=== PATIENT | female | born 1935 | race Caucasian/White ===

== ENCOUNTER 2016-10-05 12:27 | Inpatient (IN) | payer MEDICARE, MEDICAID ==
[2016-10-05] VITALS (8 sets, daily range): BP systolic 129–147; BP diastolic 77–88
[~2016-10-05] VITALS: Ht 167.6 cm; Wt 72.6 kg
[~2016-10-05 12:27] MED LIST: AMBIEN10 MG PO; ATIVAN1 MG ORAL; BACTRIM DS TAB1 EAC1 ORAL; DRISDOL50000 UNIT ORAL; LOMOTIL TABLET1 EACH ORAL; NORCO 10-325 T1 EACH PO; NORCO 5-325 TA1 EACH ORAL; POTASSIUM; PROCHLORPERAZINE5 MG PO; PROZAC20 MG PO; VITAMIN B-12500 MCG ORAL; XANAX0.25 MG ORAL; [UNRECOGNIZED DRUG - REMARK] ORAL
--- NOTE | 2016-10-05 13:52 | Emergency Room Report ---
History of Present Illness General Chief Complaint: Lower Back Pain or Injury Source: Patient Present Illness HPI Patient is she presents with complaints of fall pain to the lower back and left hip area However after discussion with the patient she was found to be somewhat somnolent appears groggy Cannot give me a clear history of how she fell there is consideration for possible syncopal episode Patient is on pain medication as well Possible unintentional over ingestion Patient does point to her left hip with the main area of pain Denies any loss of consciousness however the patient's history is somewhat limited with her ability to provide medical history Allergies: Coded Allergies: INFLUENZA VIRUS VACCINES (Verified Allergy, Unknown, "RASH, ALMOST " PER PATIENT ON MED REC, 05/02/11) PROPOXYPHENE HCL (Verified Adverse Reaction, Severe, NAUSEA, VOMITING, ) Patient History Limited by: medical condition Past Medical History: see triage record Pertinent Family History: unable to obtain Reviewed Nursing Documentation: PMH: Agreed, PSxH: Agreed Nursing Documentation-PMH Hx Cancer: No Hx Gastrointestinal Problems: Yes - Abdominal pain Review of Systems All Other Systems: limited - Other than the ones mentioned in the history of present illness all others are reviewed however they do stay limited due to the patient's mental status Physical Exam Vital Signs Date Time Temp Pulse Resp B/P Pulse Ox O2 Delivery O2 Flow Rate FiO2 10/05/16 12:28 99.0 82 16 130/80 98 Room Air Sp02 EP Interpretation: reviewed, normal General Appearance: no apparent distress Head: normocephalic, atraumatic Eyes: bilateral eye EOMI, bilateral eye PERRL ENT: normal pharynx, dry mucus membranes Neck: supple Respiratory: lungs clear, normal breath sounds Cardiovascular #1: regular rate, rhythm, no edema Gastrointestinal: non tender, soft, no mass Musculoskeletal: other - Patient does not have any obvious focality however 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 pain on palpation of the left hip area, Neurologic: other - Patient follows simple commands however appears to be confused no obvious focality, Skin: normal color, no rash Lymphatic: no adenopathy Medical Decision Making Diagnostic Impression: Primary Impression: Syncope Additional Impressions: Back pain UTI (urinary tract infection) ER Course Multiple differentials considered initially the patient's main complaint was regarding fall However the patient's behavior appears somewhat abnormal patient appears slow to respond mildly confused Septic workup was initiated patient does have obvious signs of UTI Baseline blood work appropriate CT imaging did not reveal any obvious acute fracture At this time patient was admitted for further inpatient care Labs Test 10/05/16 14:00 10/05/16 14:20 10/05/16 20:00 10/06/16 04:30 White Blood Count 7.3 K/UL (4.8-10.8) 7.4 K/UL (4.8-10.8) Red Blood Count 4.66 M/UL (4.20-5.40) 4.57 M/UL (4.20-5.40) Hemoglobin 13.6 G/DL (12.0-16.0) 13.6 G/DL (12.0-16.0) Hematocrit 42.4 % (37.0-47.0) 41.4 % (37.0-47.0) Mean Corpuscular Volume 91 FL (80-99) 90 FL (80-99) Mean Corpuscular Hemoglobin 29.1 PG (27.0-31.0) 29.6 PG (27.0-31.0) Mean Corpuscular Hemoglobin Concent 32.0 G/DL (32.0-36.0) 32.8 G/DL (32.0-36.0) Red Cell Distribution Width 12.4 % (11.6-14.8) 12.5 % (11.6-14.8) Platelet Count 252 K/UL (150-450) 248 K/UL (150-450) Mean Platelet Volume 6.3 FL (6.5-10.1) 5.8 FL (6.5-10.1) Neutrophils (%) (Auto) 45.0 % (45.0-75.0) 34.2 % (45.0-75.0) Lymphocytes (%) (Auto) 44.1 % (20.0-45.0) 54.6 % (20.0-45.0) Monocytes (%) (Auto) 8.6 % (1.0-10.0) 8.4 % (1.0-10.0) Eosinophils (%) (Auto) 0.8 % (0.0-3.0) 1.4 % (0.0-3.0) Basophils (%) (Auto) 1.5 % (0.0-2.0) 1.3 % (0.0-2.0) Prothrombin Time 10.2 SEC (9.30-11.50) Prothromb Time International Ratio 1.0 (0.9-1.1) Activated Partial Thromboplast Time 25 SEC (23-33) Sodium Level 137 mEQ/L (135-145) 141 mEQ/L (135-145) Potassium Level 4.3 mEQ/L (3.4-4.9) 3.4 mEQ/L (3.4-4.9) Chloride Level 95 mEQ/L (98-107) 97 mEQ/L (98-107) Carbon Dioxide Level 26 mEQ/L (20-30) 28 mEQ/L (20-30) Anion Gap 16 (5-15) 16 (5-15) Blood Urea Nitrogen 11 mg/dL (7-23) 11 mg/dL (7-23) Creatinine 0.9 mg/dL (0.5-0.9) 0.9 mg/dL (0.5-0.9) Estimat Glomerular Filtration Rate mL/min (>60) mL/min (>60) Glucose Level 104 mg/dL (74-106) 106 mg/dL (74-106) Calcium Level 9.2 mg/dL (8.6-10.2) 9.2 mg/dL (8.6-10.2) Total Bilirubin 0.5 mg/dL (0.0-1.2) Aspartate Amino Transf (AST/SGOT) 18 U/L (5-40) Alanine Aminotransferase (ALT/SGPT) 8 U/L (3-33) Alkaline Phosphatase 89 U/L (35-104) Total Creatine Kinase 89 U/L (26-140) Creatine Kinase MB 2.0 ng/mL (< 3.8) Creatine Kinase MB Relative Index 2.2 Troponin I < 0.30 ng/mL (<=0.30) < 0.30 ng/mL (<=0.30) Pro-B-Type Natriuretic Peptide 91 pg/mL (0-450) Total Protein 7.4 g/dL (6.6-8.7) Albumin 4.2 g/dL (3.5-5.2) Globulin 3.2 g/dL Albumin/Globulin Ratio 1.3 (1.0-2.7) Lipase 15 U/L (< 60) Urine Color Yellow Urine Appearance Clear Urine pH 6 (4.5-8.0) Urine Specific [place] 1.015 (1.005-1.035) Urine Protein 2+ (NEGATIVE) Urine Glucose (UA) Negative (NEGATIVE) Urine Ketones Negative (NEGATIVE) Urine Occult Blood 3+ (NEGATIVE) Urine Nitrite Positive (NEGATIVE) Urine Bilirubin Negative (NEGATIVE) Urine Urobilinogen Normal MG/DL (0.0-1.0) Urine Leukocyte Esterase 3+ (NEGATIVE) Urine RBC 5-10 /HPF (0 - 2) Urine WBC 15-20 /HPF (0 - 2) Urine Squamous Epithelial Cells Few /LPF (NONE/OCC) Urine Amorphous Sediment Few /LPF (NONE) Urine Bacteria Many /HPF (NONE) Urine Opiates Screen Positive (NEGATIVE) Urine Barbiturates Screen Negative (NEGATIVE) Phencyclidine (PCP) Screen Negative (NEGATIVE) Urine Amphetamines Screen Negative (NEGATIVE) Urine Benzodiazepines Screen Positive (NEGATIVE) Urine Cocaine Screen Negative (NEGATIVE) Urine Marijuana (THC) Screen Negative (NEGATIVE) Vitamin B12 Level 606 pg/mL (211-946) Thyroid Stimulating Hormone (TSH) 1.030 uIU/mL (0.300-4.500) Test 10/06/16 20:28 Troponin I < 0.30 ng/mL (<=0.30) Rhythm Strip Diag. Results EP Interpretation: yes Rate: 78 Rhythm: NSR, no PVC's, no ectopy Chest X-Ray Diagnostic Results EP Interpretation: Yes Findings: no consolidation, no effusion, no pneumothorax Number of Views: 1 Other X-Ray Diagnostic Results Other X-Ray Diagnostic Results : EP Interpretation: Yes Findings: no fractures, no dislocation, no soft tissue swelling Number of Views: 4 - c-spine CT/MRI/US Diagnostic Results CT/MRI/US Diagnostic Results : Impression CT head:no acute disease CT-L spineImpression: No definite acute bony trauma Stable compression fracture deformities of L2 and L4, with evidence of interim kyphoplasty Stable chronic fracture impression deformity of the L3 vertebral body. Degenerative changes as areas of spinal stenosis, as delineated on a level by level basis above. Last Vital Signs Date Time Temp Pulse Resp B/P Pulse Ox O2 Delivery O2 Flow Rate FiO2 10/05/16 13:40 74 16 132/79 99 Room Air 10/05/16 12:39 99.0 Status: improved Disposition: ADMITTED INPATIENT Condition: Serious BECK HERNANDEZ D.O. Oct 05, 2016 13:52
--- NOTE | 2016-10-05 14:15 | Diagnostic Imaging Report ---
Indication: PAIN, status post fall Technique: spiral acquisitions obtained through the brain. Angled axial and coronal 5 x 5 mm slices were reconstructed. No IV contrast utilized. Radiation dose was minimized using automated exposure control Total dose length product 1442 mGycm. CTDIvol(s) 70 mGy Comparison: 04/21/2016 FINDINGS: No acute hemorrhage or edema. No mass effect or midline shift. There is age-related enlargement of the ventricles and extra axial CSF spaces. There is periventricular deep white matter ischemic change. Normal frank-white differentiation. Visualized orbits are unremarkable. Visualized sinuses are unremarkable. Intact calvarium. Findings are unchanged IMPRESSION: Chronic and age-related changes. Negative for acute intracranial bleed or mass effect The CT scanner at [facility] is accredited by the [employer] and the scans are performed using protocols designed to limit radiation exposure to as low as reasonably achievable to attain images of sufficient resolution adequate for diagnostic evaluation
[2016-10-05 14:25] LABS: BASOPHILS % (AUTO) 1.5 % (0.0-2.0); EOSINOPHILS % (AUTO) 0.8 % (0.0-3.0); LYMPHOCYTES % (AUTO) 44.1 % (20.0-45.0); MEAN CORPUSCULAR HEMOGLOBIN 29.1 PG (27.0-31.0); MEAN CORPUSCULAR VOLUME 91 FL (80-99); MEAN PLATELET VOLUME 6.3 FL (6.5-10.1); MONOCYTES % (AUTO) 8.6 % (1.0-10.0); PLATELET COUNT 252 K/UL (150-450); RED BLOOD COUNT 4.66 M/UL (4.20-5.40); RED CELL DISTRIBUTION WIDTH 12.4 % (11.6-14.8); WHITE BLOOD COUNT 7.3 K/UL (4.8-10.8)
--- NOTE | 2016-10-05 14:29 | Diagnostic Imaging Report ---
Indications: Pain/fall Technique: Spiral acquisitions obtained through the lumbar spine. Multiplanar reconstructions were generated. No IV contrast utilized. Total dose length product 485 mGycm. CTDIvol(s) 17 mGy Comparison: 04/21/2016 Findings: There is a burst/compression fracture deformity of the L2 vertebral body. There is been interim vertebral augmentation procedure for this. The fracture deformity appears unchanged from the prior study. The cement is entirely intraosseous. There is slight posterior retropulsion, also previously described, which does not significantly compromise the spinal canal. There is a minimal anterior wedge compression fracture at superior endplate deformity of the L4 vertebral body, fracture likewise appearing unchanged. There is evidence of interim vertebral indication procedure, with intraosseous cement within the vertebral body. Cement is entirely intraosseous. There is slight anterior loss of height of the L3 vertebral body, with some underlying bony sclerosis. This appears unchanged from the previous exam. L1, L5, and lower thoracic vertebral bodies demonstrate normal height. No acute fracture is evident. No dislocations. As mentioned above, there is slight posterior retropulsion of the superior posterior wall of the L2 vertebral, which does not result in any significant narrowing of spinal canal. No significant neuroforaminal stenosis at this level. At L2-3 and L3-4, there is circumferential annular bulge ligamentum flavum hypertrophy, which results in mild narrowing of the spinal canal. No significant neural foraminal stenosis At L4-5, circumferential annular bulge, posterior osteophytes, and ligamentum flavum hypertrophy results in mild to moderate narrowing of the spinal canal. No significant neural foraminal stenosis. There is facet degeneration bilaterally at this level At L5-S1, there is moderate to severe degenerative disc narrowing. No significant disc bulge or protrusion, spinal stenosis, or neural foraminal narrowing. There is facet degeneration bilaterally The surrounding extra spinal soft tissues are unremarkable. Impression: No definite acute bony trauma Stable compression fracture deformities of L2 and L4, with evidence of interim kyphoplasty Stable chronic fracture impression deformity of the L3 vertebral body. Degenerative changes as areas of spinal stenosis, as delineated on a level by level basis above. The CT scanner at [facility] is accredited by the [employer] and the scans are performed using protocols designed to limit radiation exposure to as low as reasonably achievable to attain images of sufficient resolution adequate for diagnostic evaluation.
[2016-10-05] MEDS ORDERED: cefTRIAXone 1 GM in NS 55 ML IVPB ONE (14:30)
[2016-10-05 14:35] LABS: PROTHROMBIN TIME 10.2 SEC (9.30-11.50)
--- NOTE | 2016-10-05 14:37 | Diagnostic Imaging Report ---
Indication: PAIN Technique: 3 views of the cervical spine Comparison: none Findings: Imaging of the lateral view is very limited. Cervical spine is only visualized to the mid C4-1 lateral view, with lower cervical spine slightly better visualized on the swimmer's view. There is prominence of the prevertebral soft tissues on the swimmer's view but not on conventional view; suspect that this is related to body habitus no definite acute fractures. Bones are osteoporotic. No dislocations. There is multilevel degenerative disc narrowing of the lower cervical spine. Impression: Very limited exam. No gross acute bony trauma Osteoporotic change Degenerative changes, as described
[2016-10-05 14:42] LABS: ALANINE AMINOTRANSFERASE 8 U/L (3-33); ALBUMIN/GLOBULIN RATIO 1.3 (1.0-2.7); ANION GAP 16 (5-15); ASPARTATE AMINO TRANSFERASE 18 U/L (5-40); CALCIUM 9.2 mg/dL (8.6-10.2); CARBON DIOXIDE 26 mEQ/L (20-30); CHLORIDE 95 mEQ/L (98-107); CREATININE 0.9 mg/dL (0.5-0.9); HEMOLYSIS 48; LIPASE 15 U/L (< 60); POTASSIUM 4.3 mEQ/L (3.4-4.9); SODIUM 137 mEQ/L (135-145); TOTAL PROTEIN 7.4 g/dL (6.6-8.7); TROPONIN I < 0.30 ng/mL (<=0.30)
--- NOTE | 2016-10-05 14:52 | Diagnostic Imaging Report ---
Indication: Chest pain Technique: One view of the chest Comparison: none Findings: Lungs and pleural spaces are clear. Heart size is normal . Aorta is tortuous Impression: No acute process
--- NOTE | 2016-10-05 15:04 | History and Physical ---
History of Present Illness General Date patient seen: Oct 05, 2016 Time patient seen: 15:04 Reason for Hospitalization: Lower Back Pain or Injury Present Illness HPI 80 yo/ female with pmh of depression/anxiety and previous lumbar compression fractures s/p kyphoplasty of L2 and L4 on 04/27/16 who presents with concern for syncopal episode. Per review of records, pt had a fall with pain to lower back and left hip area. She was noted to be somnolent and groggy in ED. Concern for syncopal episode. Utox was positive for benzo and opioids. Possible unintentional over ingestion. Patient does point to her left hip with the main area of pain. Denies any loss of consciousness however the patient's history is somewhat limited with her ability to provide medical history. In ED, CT head, CT C &L spine, CT pelvis was showed no acute pathology. Allergies: Coded Allergies: INFLUENZA VIRUS VACCINES (Verified Allergy, Unknown, "RASH, ALMOST " PER PATIENT ON MED REC, 05/02/11) PROPOXYPHENE HCL (Verified Adverse Reaction, Severe, NAUSEA, VOMITING, ) Medication History Scheduled Cyanocobalamin (Vitamin B-12)* (Vitamin B-12*), 1,000 MCG ORAL DAILY Ergocalciferol (Vitamin D2)* (Drisdol*), 50,000 INTLU ORAL QWEEK Fluoxetine Hcl* (Prozac*), 40 MG PO DAILY, (Reported) Hydrocodone Bit/Acetaminophen 10-325* ([place] 10-325*), 1 TAB PO Q 6H PRN, ( Reported) Lorazepam* (Ativan*), 1 MG ORAL TID PRN, (Reported) Prochlorperazine Maleate* (Compazine*), 5 MG PO Q6 H PRN, (Reported) Zolpidem Tartrate* (Ambien*), 10 MG PO HS, (Reported) Patient History Healthcare decision maker Resuscitation status Advanced Directive on File Past Medical/Surgical History Past Medical/Surgical History: (1) Multiple falls (2) Lumbar compression fracture (3) Vitamin B12 deficiency (4) Vitamin D deficiency (5) Closed L2 vertebral fracture (6) Anxiety (7) Depression Family History Family History: Patient reports no known family medical history. Social History Social History: (1) No significant social history Review of Systems ROS Narrative Unable to obtain given AMS Physical Exam Physical Exam Narrative General: alert, cooperative, no distress, appears stated age, somnolent Head: normocephalic, without obvious abnormality, atraumatic Eyes: conjunctivae/corneas clear. PERRL, EOM's intact Throat: lips, mucosa, and tongue normal. MMM Neck: supple, symmetrical, trachea midline, and no JVD Lungs: clear to auscultation bilaterally Heart: regular rate and rhythm, S1, S2 normal, no murmur, click, rub or gallop Abdomen: soft, non-tender, non-distended, bowel sounds normal; no masses or organomegaly Extremities: extremities normal, atraumatic, no cyanosis or edema Pulses: 2+ and symmetric Skin: skin color, texture, turgor normal; no rashes or lesions Neurologic: grossly normal, no focal deficits Last 24 Hour Vital Signs Date Time Temp Pulse Resp B/P Pulse Ox O2 Delivery O2 Flow Rate FiO2 10/05/16 14:30 79 8 147/81 97 Room Air 10/05/16 13:40 74 16 132/79 99 Room Air 10/05/16 12:39 99.0 82 16 130/80 98 Room Air 10/05/16 12:28 99.0 82 16 130/80 98 Room Air Laboratory Tests Test 10/05/16 14:00 10/05/16 14:20 White Blood Count 7.3 K/UL (4.8-10.8) Red Blood Count 4.66 M/UL (4.20-5.40) Hemoglobin 13.6 G/DL (12.0-16.0) Hematocrit 42.4 % (37.0-47.0) Mean Corpuscular Volume 91 FL (80-99) Mean Corpuscular Hemoglobin 29.1 PG (27.0-31.0) Mean Corpuscular Hemoglobin Concent 32.0 G/DL (32.0-36.0) Red Cell Distribution Width 12.4 % (11.6-14.8) Platelet Count 252 K/UL (150-450) Mean Platelet Volume 6.3 FL (6.5-10.1) L Neutrophils (%) (Auto) 45.0 % (45.0-75.0) Lymphocytes (%) (Auto) 44.1 % (20.0-45.0) Monocytes (%) (Auto) 8.6 % (1.0-10.0) Eosinophils (%) (Auto) 0.8 % (0.0-3.0) Basophils (%) (Auto) 1.5 % (0.0-2.0) Prothrombin Time 10.2 SEC (9.30-11.50) Prothromb Time International Ratio 1.0 (0.9-1.1) Activated Partial Thromboplast Time 25 SEC (23-33) Sodium Level 137 mEQ/L (135-145) Potassium Level 4.3 mEQ/L (3.4-4.9) Chloride Level 95 mEQ/L (98-107) L Carbon Dioxide Level 26 mEQ/L (20-30) Anion Gap 16 (5-15) H Blood Urea Nitrogen 11 mg/dL (7-23) Creatinine 0.9 mg/dL (0.5-0.9) Estimat Glomerular Filtration Rate mL/min (>60) Glucose Level 104 mg/dL (74-106) Calcium Level 9.2 mg/dL (8.6-10.2) Total Bilirubin 0.5 mg/dL (0.0-1.2) Aspartate Amino Transf (AST/SGOT) 18 U/L (5-40) Alanine Aminotransferase (ALT/SGPT) 8 U/L (3-33) Alkaline Phosphatase 89 U/L (35-104) Total Creatine Kinase 89 U/L (26-140) Creatine Kinase MB 2.0 ng/mL (< 3.8) Creatine Kinase MB Relative Index 2.2 Troponin I < 0.30 ng/mL (<=0.30) Pro-B-Type Natriuretic Peptide 91 pg/mL (0-450) Total Protein 7.4 g/dL (6.6-8.7) Albumin 4.2 g/dL (3.5-5.2) Globulin 3.2 g/dL Albumin/Globulin Ratio 1.3 (1.0-2.7) Lipase 15 U/L (< 60) Urine Color Pending Urine Appearance Pending Urine pH Pending Urine Specific [place] Pending Urine Protein Pending Urine Glucose (UA) Pending Urine Ketones Pending Urine Occult Blood Pending Urine Nitrite Pending Urine Bilirubin Pending Urine Urobilinogen Pending Urine Leukocyte Esterase Pending Urine Opiates Screen Pending Urine Barbiturates Screen Pending Phencyclidine (PCP) Screen Pending Urine Amphetamines Screen Pending Urine Benzodiazepines Screen Pending Urine Cocaine Screen Pending Urine Marijuana (THC) Screen Pending Height (Feet): 5 Height (Inches): 6.00 Weight (Pounds): 160 Assessment/Plan Problem List: (1) Toxic metabolic encephalopathy ICD Codes: G92 - Toxic encephalopathy SNOMED: 596179292 (2) Syncope ICD Codes: R55 - Syncope and collapse SNOMED: 299743239 (3) Fall ICD Codes: W19.XXXA - Unspecified fall, initial encounter SNOMED: 7159958 Status: stable Assessment/Plan Likely with altered mental status secondary to combination use of benzodiazepines and opioids. This possibly results in syncopal episode and fall. Admit to inpatient Monitor on tele Check B12, folate, TSH Minimize narcotics and benzo's Consider psych/neuro eval Trend trop Check TTE DVT Prophylaxis: SCD, HSQ Code Status: Full Hospital Classification Declaration: Based on this initial evaluation, and depending on the patient's clinical course, I anticipate that this patient will require hospitalization for 2-3 days for AMS, syncope and close respiratory/ hemodynamic monitoring. Disposition: Once the patient is stable to leave the hospital, I anticipate the patient will likely be discharged to the following environment: home with HH vs SNF I spent 70 minutes on this patient's case, and 38 minutes were dedicated to counseling and/or care coordination. Discussed with patient/family, nursing staff, SW/CM, ED physician regarding clinical status, treatment course, and disposition planning. Time of note may not reflect time of encounter. Tami Philip M.D. Oct 05, 2016 15:04
[2016-10-05 15:09] LABS: APPEARANCE,URINE CLEAR; KETONES,URINE NEGATIVE (NEGATIVE); LEUKOCYTE ESTERASE ,URINE 3+ (NEGATIVE); NITRITE,URINE POSITIVE (NEGATIVE); PH,URINE 6 (4.5-8.0); PROTEIN,URINE 2+ (NEGATIVE); UROBILINOGEN,URINE NORMAL MG/DL (0.0-1.0)
[2016-10-05] MEDS ORDERED: Vitamin D 50,000 units cap ORAL SCH (15:15)
[2016-10-05] MEDS ORDERED: Mylanta II UD 30ml ORAL PRN (15:15)
[2016-10-05] MEDS ORDERED: Miralax 17gm pkt ORAL PRN (15:15)
[2016-10-05] MEDS ORDERED: Milk of Magnesia 30ml Ud ORAL PRN (15:15)
[2016-10-05 15:44] LABS: AMORPHOUS SEDIMENT,UR FEW /LPF; BACTERIA,URINE MANY /HPF; SQUAMOUS EPITHELIAL CELL,UR FEW /LPF (NONE/OCC); WBC,URINE 15-20 /HPF (0 - 2)
--- NOTE | 2016-10-05 16:32 | Diagnostic Imaging Report ---
Indication: PAIN, status post fall Technique: Noncontrast spiral acquisitions obtained through the pelvis. Multiplanar reconstructions generated. Total dose length product 352 mGycm. CTDIvol(s) 14 mGy Comparison: 04/21/2016 Findings: No acute fractures. No dislocations. Joint spaces are preserved. There are is degenerative change of the bilateral sacroiliac joints. There are degenerative changes of the lumbosacral junction. Kyphoplasty cement is seen within the L4 vertebral body. There is no evidence of significant soft tissue contusion. The pelvic viscera demonstrate absence of the uterus and diverticulosis, also previously described Impression: No acute bony trauma. No significant change since 04/21/2016 Diverticulosis and prior hysterectomy incidentally noted. The CT scanner at [facility] is accredited by the [employer] and the scans are performed using protocols designed to limit radiation exposure to as low as reasonably achievable to attain images of sufficient resolution adequate for diagnostic evaluation.
[2016-10-05] MEDS ORDERED: LORazepam 1mg tab ORAL PRN (18:30)
[2016-10-05] MEDS ORDERED: Norco 5mg/325mg tab ORAL PRN (18:30)
[2016-10-05] MEDS: Docusate 100mg tablet ORAL SCH (20:25)
[2016-10-05] MEDS: Norco 10mg/325mg tab ORAL PRN (20:26)
[2016-10-05] MEDS: Heparin 5000 units/ml inj SUBQ SCH (20:26)
[2016-10-05 20:27] LABS: TROPONIN I < 0.30 ng/mL (<=0.30)
[2016-10-06 00:03] VITALS: BP 116/70
[2016-10-06] MEDS: TraZODone 50mg tab ORAL PRN ×2 (02:00→21:54)
[2016-10-06 04:00] VITALS: BP 125/57
[2016-10-06 07:09] LABS: BASOPHILS % (AUTO) 1.3 % (0.0-2.0); EOSINOPHILS % (AUTO) 1.4 % (0.0-3.0); LYMPHOCYTES % (AUTO) 54.6 % (20.0-45.0); MEAN CORPUSCULAR HEMOGLOBIN 29.6 PG (27.0-31.0); MEAN CORPUSCULAR HGB CONC 32.8 G/DL (32.0-36.0); MEAN CORPUSCULAR VOLUME 90 FL (80-99); MEAN PLATELET VOLUME 5.8 FL (6.5-10.1); MONOCYTES % (AUTO) 8.4 % (1.0-10.0); NEUTROPHILS % (AUTO) 34.2 % (45.0-75.0); PLATELET COUNT 248 K/UL (150-450); RED BLOOD COUNT 4.57 M/UL (4.20-5.40); RED CELL DISTRIBUTION WIDTH 12.5 % (11.6-14.8); WHITE BLOOD COUNT 7.4 K/UL (4.8-10.8)
[2016-10-06] MEDS: Norco 10mg/325mg tab ORAL PRN ×3 (07:12→20:51)
[2016-10-06 07:24] LABS: ANION GAP 16 (5-15); CALCIUM 9.2 mg/dL (8.6-10.2); CARBON DIOXIDE 28 mEQ/L (20-30); CHLORIDE 97 mEQ/L (98-107); CREATININE 0.9 mg/dL (0.5-0.9); HEMOLYSIS 17; POTASSIUM 3.4 mEQ/L (3.4-4.9); SODIUM 141 mEQ/L (135-145)
[2016-10-06 07:39] LABS: THYROID STIMULATING HORMONE 1.03 uIU/mL (0.300-4.500)
[2016-10-06 08:00] VITALS: BP 113/75
[2016-10-06] MEDS: Docusate 100mg tablet ORAL SCH ×4 (09:00→20:54)
[2016-10-06] MEDS: Vitamin B-12 500mcg tab ORAL SCH (09:13)
[2016-10-06] MEDS: Heparin 5000 units/ml inj SUBQ SCH ×2 (09:14→20:52)
[2016-10-06 11:19] VITALS: BP 123/70
--- NOTE | 2016-10-06 15:13 | General Progress Note ---
Assessment/Plan Problem List: (1) Toxic metabolic encephalopathy ICD Codes: G92 - Toxic encephalopathy SNOMED: 288466841 (2) Syncope ICD Codes: R55 - Syncope and collapse SNOMED: 083506062 (3) Fall ICD Codes: W19.XXXA - Unspecified fall, initial encounter SNOMED: 9539975 (4) E. coli UTI ICD Codes: N39.0 - Urinary tract infection, site not specified; B96.20 - Unspecified Escherichia coli [E. coli] as the cause of diseases classified elsewhere SNOMED: 489222284 Status: stable Assessment/Plan Likely with altered mental status secondary to combination use of benzodiazepines and opioids vs UTI Monitor on tele Minimize narcotics and benzo's Consult neurology given concern for decline in function and cognition Cont ceftriaxone for UTI (10/05-) B12 and TSH wnl PT/OT eval DVT Prophylaxis: SCD, HSQ Code Status: Full Hospital Classification Declaration: Based on this initial evaluation, and depending on the patient's clinical course, I anticipate that this patient will require hospitalization for 1-2 days for AMS, syncope and close respiratory/ hemodynamic monitoring. Disposition: Once the patient is stable to leave the hospital, I anticipate the patient will likely be discharged to the following environment: home with HH vs SNF I spent 40 minutes on this patient's case, and 22 minutes were dedicated to counseling and/or care coordination. Discussed with patient/family, nursing staff, SW/CM regarding clinical status, treatment course, and disposition planning. Subjective Date patient seen: Oct 06, 2016 Time patient seen: 15:13 ROS Limited/Unobtainable: No Constitutional: Reports: weakness HEENT: Reports: no symptoms Cardiovascular: Reports: no symptoms Respiratory: Reports: no symptoms Gastrointestinal/Abdominal: Reports: no symptoms Genitourinary: Reports: no symptoms Neurologic/Psychiatric: Reports: no symptoms Endocrine: Reports: no symptoms Allergies: Coded Allergies: INFLUENZA VIRUS VACCINES (Verified Allergy, Unknown, "RASH, ALMOST " PER PATIENT ON MED REC, 05/02/11) PROPOXYPHENE HCL (Verified Adverse Reaction, Severe, NAUSEA, VOMITING, ) Subjective Urine culture showing E. coli Caregiver concerned abt BLE weakness, gradual decline in cognitive function Seen by PT/OT Pt more awake, alert. She does not recall how she ended up in hospital. Pain controlled Objective Last 24 Hour Vital Signs Date Time Temp Pulse Resp B/P Pulse Ox O2 Delivery O2 Flow Rate FiO2 10/06/16 12:00 81 10/06/16 11:19 97.3 92 20 123/70 97 Room Air 10/06/16 09:10 93 10/06/16 09:05 80 10/06/16 09:00 76 10/06/16 08:00 78 10/06/16 08:00 98.1 82 20 113/75 95 Room Air 10/06/16 04:00 98.3 93 19 125/57 95 Room Air 10/06/16 04:00 81 10/06/16 00:04 83 68 79 10/06/16 00:03 98.7 83 18 116/70 97 Room Air 10/06/16 00:00 71 10/05/16 20:00 86 10/05/16 20:00 97.9 85 20 131/77 97 Room Air 10/05/16 16:26 96.7 69 20 139/80 97 Room Air 10/05/16 15:29 99.0 99 26 129/86 94 Room Air Intake and Output 10/05/16 10/06/16 19:00 07:00 Intake Total 555 ml 200 ml Output Total 350 ml Balance 205 ml 200 ml Intake Oral 200 ml IV Total 555 ml Output Urine Total 350 ml # Voids 1 4 Laboratory Tests 10/05/16 20:00: Troponin I < 0.30 10/06/16 04:30: White Blood Count 7.4, Red Blood Count 4.57, Hemoglobin 13.6, Hematocrit 41.4, Mean Corpuscular Volume 90, Mean Corpuscular Hemoglobin 29.6, Mean Corpuscular Hemoglobin Concent 32.8, Red Cell Distribution Width 12.5, Platelet Count 248, Mean Platelet Volume 5.8L, Neutrophils (%) (Auto) 34.2L, Lymphocytes (%) (Auto) 54.6H, Monocytes (%) (Auto) 8.4, Eosinophils (%) (Auto) 1.4, Basophils (%) (Auto ) 1.3, Sodium Level 141, Potassium Level 3.4, Chloride Level 97L, Carbon Dioxide Level 28, Anion Gap 16H, Blood Urea Nitrogen 11, Creatinine 0.9, Estimat Glomerular Filtration Rate , Glucose Level 106, Calcium Level 9.2, Vitamin B12 Level 606, Folate [Pending], Thyroid Stimulating Hormone (TSH) 1.030 Height (Feet): 5 Height (Inches): 6.00 Weight (Pounds): 160 Objective General: alert, cooperative, no distress, appears stated age Head: normocephalic, without obvious abnormality, atraumatic Eyes: conjunctivae/corneas clear. PERRL, EOM's intact Throat: lips, mucosa, and tongue normal. MMM Neck: supple, symmetrical, trachea midline, and no JVD Lungs: clear to auscultation bilaterally Heart: regular rate and rhythm, S1, S2 normal, no murmur, click, rub or gallop Abdomen: soft, non-tender, non-distended, bowel sounds normal; no masses or organomegaly Extremities: extremities normal, atraumatic, no cyanosis or edema Pulses: 2+ and symmetric Skin: skin color, texture, turgor normal; no rashes or lesions Neurologic: grossly normal, no focal deficits Tami Philip M.D. Oct 06, 2016 15:13
[2016-10-06 16:00] VITALS: BP 123/65
[2016-10-06 20:00] VITALS: BP 123/70
[2016-10-06] MEDS: cefTRIAXone 1 GM in D5W 55 ML IVPB SCH (20:50)
[2016-10-06 20:56] LABS: TROPONIN I < 0.30 ng/mL (<=0.30)
--- NOTE | 2016-10-06 23:10 | Cardiology Report ---
APPROVED REPORT EKG Measurement Heart [id number] Normal sinus rhythm Left axis deviation Right bundle branch block Abnormal ECG
[2016-10-07 00:01] VITALS: BP 119/72
[2016-10-07 04:05] VITALS: BP 116/66
[2016-10-07] MEDS: Docusate 100mg tablet ORAL SCH ×2 (08:46→21:43)
[2016-10-07] MEDS: Vitamin B-12 500mcg tab ORAL SCH (08:46)
[2016-10-07] MEDS: Heparin 5000 units/ml inj SUBQ SCH ×2 (08:47→21:42)
[2016-10-07 08:49] VITALS: BP 149/89
--- NOTE | 2016-10-07 11:03 | Cardiology Report ---
APPROVED REPORT EXAM: Two-dimensional and M-mode echocardiogram with Doppler and color Doppler. INDICATION Syncope M-Mode DIMENSIONS IVSd0.7 (0.7-1.1cm)Left Atrium (MM)3.1 (1.6-4.0cm) LVDd4.7 (3.5-5.6cm)Aortic Root2.8 (2.0-3.7cm) PWd0.9 (0.7-1.1cm)Aortic Cusp Exc.1.5 (1.5-2.0cm) LVDs2.7 (2.5-4.0cm) PWs1.0 cm Normal left ventricular chamber size, systolic function and wall motion. Left ventricular ejection fraction estimated to be 60-65 %. Mild left ventricular hypertrophy. Small posterior pericardial effusion. All other cardiac chamber sizes are within normal limits. Focal aortic valve sclerosis with adequate cusp excursion Thickened mitral valve leaflets with normal excursion. Mitral annulus and aortic root calcification. Pulmonic valve not well visualized. Normal tricuspid valve structure. IVC is normal in size with physiologic collapse. A color flow and spectral Doppler study was performed and revealed: No aortic regurgitation. No mitral regurgitation. Left ventricular diastolic dysfunction grade 1. No tricuspid regurgitation.
[2016-10-07 11:43] VITALS: BP 135/76
--- NOTE | 2016-10-07 12:51 | Consultation ---
Consult Note Consult Note NEUROLOGY CONSULTATION: Full note dictated #[id number] 81 y/o, RH, CF with PH of MMP who came in following a syncopal episode. She has had frequent falls and cognitive problems. ON EXAM: Problems with orientation. Memory VSF/HCF/Language. Paraparesis LE areflexia. REC: W/U for cognitive function and paraparesis. MRI - Brain and L-spine Try to wean off narcotics and benzos. Negrito Rodriguez M.D., M.S.P.H. NEGRITO RODRIGUEZ Oct 07, 2016 12:51
--- NOTE | 2016-10-07 15:06 | General Progress Note ---
Assessment/Plan Problem List: (1) Toxic metabolic encephalopathy ICD Codes: G92 - Toxic encephalopathy SNOMED: 336317002 (2) Syncope ICD Codes: R55 - Syncope and collapse SNOMED: 666689746 (3) Fall ICD Codes: W19.XXXA - Unspecified fall, initial encounter SNOMED: 1060021 (4) E. coli UTI ICD Codes: N39.0 - Urinary tract infection, site not specified; B96.20 - Unspecified Escherichia coli [E. coli] as the cause of diseases classified elsewhere SNOMED: 119738193 Assessment/Plan Likely with altered mental status secondary to combination use of benzodiazepines and opioids vs UTI Monitor on tele Minimize narcotics and benzo's Consult neurology given concern for decline in function and cognition Cont ceftriaxone for UTI (10/05-) B12 and TSH wnl PT/OT eval DVT Prophylaxis: SCD, HSQ Code Status: Full Hospital Classification Declaration: Based on this initial evaluation, and depending on the patient's clinical course, I anticipate that this patient will require hospitalization for 1-2 days for AMS, syncope and close respiratory/ hemodynamic monitoring. Disposition: Once the patient is stable to leave the hospital, I anticipate the patient will likely be discharged to the following environment: home with HH vs SNF I spent 40 minutes on this patient's case, and 22 minutes were dedicated to counseling and/or care coordination. Discussed with patient/family, nursing staff, SW/CM regarding clinical status, treatment course, and disposition planning. Subjective Date patient seen: Oct 07, 2016 Time patient seen: 15:05 Allergies: Coded Allergies: INFLUENZA VIRUS VACCINES (Verified Allergy, Unknown, "RASH, ALMOST " PER PATIENT ON MED REC, 05/02/11) PROPOXYPHENE HCL (Verified Adverse Reaction, Severe, NAUSEA, VOMITING, ) Subjective Urine culture showing E. coli Caregiver concerned abt BLE weakness, gradual decline in cognitive function Seen by PT/OT Pt more awake, alert. She does not recall how she ended up in hospital. Pain controlled Objective Last 24 Hour Vital Signs Date Time Temp Pulse Resp B/P Pulse Ox O2 Delivery O2 Flow Rate FiO2 10/07/16 12:00 94 10/07/16 11:43 96.9 90 18 135/76 96 Room Air 10/07/16 09:10 95 10/07/16 09:05 86 10/07/16 09:00 77 10/07/16 08:49 97.9 77 18 149/89 97 Room Air 10/07/16 08:00 77 10/07/16 04:05 98.3 76 18 116/66 94 Room Air 10/07/16 04:00 72 10/07/16 00:03 71 82 91 10/07/16 00:01 98.7 71 19 119/72 96 Room Air 10/07/16 00:00 68 10/06/16 20:00 97.6 75 21 123/70 97 Room Air 10/06/16 20:00 78 10/06/16 17:00 72 82 90 10/06/16 16:00 80 10/06/16 16:00 97.9 82 21 123/65 92 Room Air Intake and Output 10/06/16 10/07/16 19:00 07:00 Intake Total 240 ml 315 ml Balance 240 ml 315 ml Intake Oral 240 ml 260 ml IV Total 55 ml # Voids 2 4 # Bowel Movements 1 Laboratory Tests 10/06/16 20:28: Troponin I < 0.30 Height (Feet): 5 Height (Inches): 6.00 Weight (Pounds): 160 Objective General: alert, cooperative, no distress, appears stated age Head: normocephalic, without obvious abnormality, atraumatic Eyes: conjunctivae/corneas clear. PERRL, EOM's intact Throat: lips, mucosa, and tongue normal. MMM Neck: supple, symmetrical, trachea midline, and no JVD Lungs: clear to auscultation bilaterally Heart: regular rate and rhythm, S1, S2 normal, no murmur, click, rub or gallop Abdomen: soft, non-tender, non-distended, bowel sounds normal; no masses or organomegaly Extremities: extremities normal, atraumatic, no cyanosis or edema Pulses: 2+ and symmetric Skin: skin color, texture, turgor normal; no rashes or lesions Neurologic: grossly normal, no focal deficits Tami Philip M.D. Oct 07, 2016 15:06
[2016-10-07] MEDS ORDERED: Zolpidem 5mg tab ORAL PRN (15:15)
[2016-10-07] MEDS ORDERED: Norco 7.5mg/325mg tab ORAL PRN (15:15)
[2016-10-07 16:00] VITALS: BP 141/82
[2016-10-07] MEDS ORDERED: LORazepam 1mg tab ORAL PRN ×2 (16:45)
--- NOTE | 2016-10-07 18:47 | Consultation ---
DATE OF CONSULTATION: 10/07/2016 NEUROLOGY CONSULTATION CONSULTING PHYSICIAN: Hector Rodriguez M.D. REQUESTING PHYSICIAN: Tami Philip M.D. HISTORY: Ms. Keshia Castro is an 81-year-old, right-handed, lady, who does have a past history of anxiety, depression, vitamin D deficiency, vitamin B12 deficiency, compression fractures involving lumbar spine, multiple falls and recently some cognitive decline. She was apparently noted to have an episode of loss of consciousness at home followed by somnolence and poor responsiveness. As a result of that, she was brought into the [facility] emergency room. She was evaluated in the emergency room and her studies revealed that her urine toxicology screen was positive for benzodiazepines and opioids and in addition, she also had a urinary tract infection. She has been hospitalized since then but continues to have problems with weakness in the leg and some cognitive dysfunction. This consultation was requested to evaluate the patient for her gait problems and cognitive problems. As per the patient the problem with the walking has been there for quite some time now. She attributes that to having bilateral knee surgeries and being old. She has not noticed any problems with her memory. She denies any significant weakness on one side or the other, numbness on one side or the other, problems with speech, problems with language, problems with vision, but does state that she does have chronic low back pain. 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 In addition, she has a vitamin B12 and D deficiency. FAMILY HISTORY: Nothing significant as per the patient. PERSONAL HISTORY: Home: She lives with a "[facility] 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 Habits: She used to drink alcohol in moderation in the past, but has not had a drink for numerous years. She denies the use of tobacco or illicit drugs. MEDICATIONS: Present medications include ceftriaxone, vitamin B12, Prozac, heparin for DVT prophylaxis, Colace, Beserol, Tylenol, [place], Dulcolax, milk of magnesia, MiraLAX, Zofran and Mylanta. PHYSICAL EXAMINATION: GENERAL: She is a well-developed and well-nourished, pleasant lady, lying in bed, in no acute distress. VITAL SIGNS: Pulse 90 per minute, blood pressure 135/76 mm Hg, respirations 18 per minute, and temperature 96.9 degrees Fahrenheit. HEAD: Normocephalic and atraumatic. EENT: Examination benign. NECK: No neck rigidity was observed. SPINE: Cervical, thoracic and lumbosacral spine revealed no tenderness, no paraspinal muscle spasm, but decreased range of motion. NEUROLOGICAL EXAMINATION: MENTAL STATUS EXAMINATION: She was alert and awake. She was oriented to self and October 2016. She did not know where she was located or what the date was. She was able to recall 3/3 words immediately, but could only remember 1/3 words in 1 minute and 3 minutes even on the second trial. She was unable to tell me who the present President was and who prior Presidents were. Her mathematical skills were impaired. Her visuospatial function was also impaired. SPEECH: She had no dysarthria. LANGUAGE: She had an anomia for low-frequency words. CRANIAL NERVE EXAMINATION: II: The visual garcia were intact to confrontation testing. III, IV & : The external ocular movements were full and the pupils 3 mm in diameter, equal, round, regular and reactive to light. V: She had normal facial sensations and the temporales, masseters, and pterygoids functioned normally. VII: She had normal facial expressions and no facial asymmetry. VIII: She was able to hear well bilaterally and had no nystagmus. IX: The palate moved symmetrically on phonation. X: She had no hoarseness of voice. XI: The sternocleidomastoids and trapezii functioned normally. XII: The tongue was midline without any fasciculations or atrophy. MOTOR SYSTEM: The tone was normal in all four extremities. Examination of muscle mass revealed wasting of the muscles generally. Examination of power revealed grade 5/5 power except for grade 4/5 power in the iliopsoas muscles bilaterally. SENSORY EXAMINATION: She had intact sensations to pinprick, light touch, and graphesthesia. COORDINATION: She performed well on [id number] and [id number] testing. REFLEXES: 1+ and bilaterally symmetrical at the biceps, triceps, and brachioradialis. 0 at both knees, and ankles. The plantar responses were flexor bilaterally. STANCE : She needed support on both sides to standup. GAIT: She walked with mildly paraplegic gait to support. DIAGNOSTIC IMPRESSION: 1. Ms. Keshia Castro is an 81-year-old, right-handed, lady, who does have a past history of anxiety and depression, chronic benzodiazepine and opiate use and arthritis involving multiple joints for which she has had bilateral knee replacements, lumbosacral spine disease with compression fractures that had been treated with kyphoplasty, who was hospitalized for frequent falls and cognitive decline. 2. On neurological examination, at this time, she does demonstrate significant problems with orientation, recent and remote memory, visuospatial function, higher cognitive function and language. 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 3. The patient's history and neurological examination are most compatible with significant cognitive decline. This cognitive decline may be related to a primary degenerative process versus other intracranial pathology and in addition, the benzodiazepines and opiates could be contributing to it. 4. The weakness in the legs is most probably related to lumbosacral spinal pathology and in addition, the super added vitamin B12 and vitamin D deficiency. There may also be a component of disuse and deconditioning. RECOMMENDATIONS: 1. Agree with management thus far. 2. Agree with treating the patient's urinary tract infection aggressively. 3. She should be worked up thoroughly for other treatable causes of cognitive decline and paraparesis with an MRI scan of the brain and lumbosacral spine. 4. Laboratory tests will be ordered to work the patient up for other treatable causes of cognitive decline and paraparesis. 5. She should be mobilized with the help of physical and occupational therapy. Thank you for entrusting me with the care of Ms. Castro. I shall follow her with you. Hector Rodriguez M.D., M.S.P.H. DR: RODGER JOB#: [id number] MTDYarely
[2016-10-07] MEDS: cefTRIAXone 1 GM in D5W 55 ML IVPB SCH (19:25)
[2016-10-07 20:00] VITALS: BP 145/74
[2016-10-08] VITALS: BP 146/78
[2016-10-08] MEDS ORDERED: Mylanta II UD 30ml ORAL PRN (03:15)
[2016-10-08] MEDS: Norco 7.5mg/325mg tab ORAL PRN ×3 (03:46→14:25)
[2016-10-08 04:00] VITALS: BP 137/74
[2016-10-08] MEDS ORDERED: Norco 5mg/325mg tab ORAL PRN (06:30)
[2016-10-08 08:00] VITALS: BP 135/74
--- NOTE | 2016-10-08 08:16 | Diagnostic Imaging Report ---
Indication: 81-year-old female inpatient with chronic low back pain times one year. History of lumbar kyphoplasty Technique: Sagittal T1 and T2 fast spin echo, sagittal STIR, axial T1 and T2 fast spin-echo images of the lumbar spine Comparison: 04/23/2016, also CT lumbar spine 10/05/2016 Findings: Again demonstrated is an anterior wedge compression fracture deformity of the L2 vertebral body. This appears unchanged in extent. Internal signal void is consistent with interim kyphoplasty procedure. No abnormal T1 marrow signal is currently evident, and there is only trace if any STIR signal abnormality which is probably residual from the prior event rather than representing an acute injury. Again demonstrated is very slight superior endplate compression of the L4 vertebral body. Internal signal void is evidence of interim kyphoplasty. No abnormal marrow signal is present. The remaining vertebral body heights are preserved. The rest of the bone marrow signal is normal except for minimal Modic type endplate changes surrounding L4-5 and L5-S1. At T12-L1 and L1-L2 and L3-4, no significant disc bulge or protrusion or spinal stenosis or significant disc space narrowing or significant neural foraminal stenosis is demonstrated. There is slight posterior retropulsion of the superior-posterior wall of L2, unchanged, which does not significantly compromise the spinal canal. At L2-3, there is mild circumferential annular bulge which appears similar to the prior exam, does not result in any significant spinal canal or neural foraminal narrowing. There is mild narrowing of the disc at this level At L4-5, there is mild degenerative narrowing of the disc. Circumferential annular bulge results in mild narrowing of the spinal canal and possible compromise of the right lateral recess. There is mild compromise of the right neural foramen as a result. The appearance is unchanged from the previous exam. At L5-S1 there is moderate degenerative narrowing of the disc, as well as the posterior high intensity zone which was evident previously. There is central annular posterior disc protrusion which does not significantly compromise the spinal canal. Neural foramina are preserved. The included extraspinal soft tissues are unremarkable.. Impression: Evidence of interim kyphoplasty for treatment of previously described L2 and L4 compression fracture deformities. These are otherwise unchanged since April 2016 exam No evidence of acute injury. Degenerative changes, as detailed on a level by level basis above. Unchanged since April 2016 exam
--- NOTE | 2016-10-08 08:16 | Diagnostic Imaging Report ---
Indication: Syncope and altered mental status Technique: sagittal T1 fast spin echo, axial T1 FLAIR PROPELLER, axial T2 FLAIR PROPELLER, axial T2 FS PROPELLER, axial T2* GRE, axial diffusion weighted images. ADC and exponential ADC maps generated Comparison: Brain CT dated 10/05/2016. No prior MRI Findings: . No abnormal areas of restricted diffusion to suggest acute infarction. No acute hemorrhage or edema. No mass effect nor midline shift. There is age-related enlargement of ventricles and extra-axial CSF spaces. Is very mild periventricular deep white matter T2 hyperattenuation, most likely on the basis of chronic ischemic changes. Visualized orbits and sinuses are unremarkable. Impression: Mild age-related changes. Negative for acute infarct, intracranial bleed or mass effect
[2016-10-08] MEDS ORDERED: Heparin 5000 units/ml inj SUBQ SCH (09:00)
[2016-10-08] MEDS ORDERED: Vitamin B-12 500mcg tab ORAL SCH (09:00)
[2016-10-08] MEDS ORDERED: Docusate 100mg tablet ORAL SCH (09:00)
[2016-10-08] MEDS ORDERED: Sterile Water Irrig 1000ml IRRIG ONE (10:23)
[2016-10-08] MEDS ORDERED: Tubing IV Secondary IV ONE (10:23)
[2016-10-08 12:18] VITALS: BP 117/77
[2016-10-08 12:24] LABS: A/G RATIO 1.2 (0.7-1.7); ABNORMAL PROTEIN BAND 1 Not Observed g/dL (Not Observed); ALBUMIN 3.8 g/dL (2.9-4.4); ALPHA-1 GLOBULIN 0.2 g/dL (0.0-0.4); ALPHA-2 GLOBULIN 0.7 g/dL (0.4-1.0); BETA GLOBULIN 1.2 g/dL (0.7-1.3); GAMMA GLOBULIN 1.2 g/dL (0.4-1.8); GLOBULIN, TOTAL 3.3 g/dL (2.2-3.9); TOTAL PROTEIN 7.1 g/dL (6.0-8.5)
[2016-10-08] MEDS ORDERED: HYDROCODON-ACE1 EA16 ORAL (14:54)
[2016-10-08] MEDS ORDERED: DOCUPRENE100 MG ORAL (14:54)
[2016-10-08] MEDS ORDERED: AMBIEN5 MG ORAL (14:54)
[2016-10-08] MEDS ORDERED: ATIVAN1 MG ORAL (14:54)
[2016-10-08] MEDS ORDERED: BACTRIM-DS1 EA ORAL (14:55)
--- NOTE | 2016-10-08 14:57 | Discharge Summary ---
Discharge Summary Hospital Course Date of Admission Oct 05, 2016 at 14:11 Date of Discharge 10/08/16 Admitting Diagnosis syncope HPI Keshia Castro is a 81 year old female who was admitted on Oct 05, 2016 at 14: 11 for Syncope Discharge Discharge Disposition Patient was discharged to Home (01) Discharge Diagnoses: Tami Philip M.D. Oct 08, 2016 14:57
[2016-10-08] MEDS ORDERED: Zolpidem 5mg tab ORAL PRN (15:15)
[2016-10-08] MEDS ORDERED: Milk of Magnesia 30ml Ud ORAL PRN (15:15)
[2016-10-08] MEDS ORDERED: Miralax 17gm pkt ORAL PRN (15:15)
[2016-10-08 16:00] VITALS: BP 134/72
[2016-10-08] MEDS ORDERED: Bactrim DS (160mg/800mg) tab ORAL SCH (16:00)
[2016-10-08] MEDS ORDERED: LORazepam 1mg tab ORAL PRN (16:45)
--- NOTE | 2016-10-08 17:03 | Neurology Progress Note ---
Interim History Interim History Interim History Ms. Castro feels well. She is going to be sent to a SNF. The legs continue to be weak. She continues to be cognitively impoverished. She denies any new neurologic symptoms. Review of Systems Neuro Review of Systems Benign. Objective Physical Exam Last Vital Signs Date Time Temp Pulse Resp B/P Pulse Ox O2 Delivery O2 Flow Rate FiO2 10/08/16 15:24 98.1 10/08/16 12:18 76 18 117/77 100 Room Air Neurologic Exam Objective PHYSICAL EXAMINATION: GENERAL: She is a well-developed and well-nourished, pleasant lady, lying in bed, in no acute distress. HEAD: Normocephalic and atraumatic. EENT: Examination benign. NECK: No neck rigidity was observed. SPINE: Cervical, thoracic and lumbosacral spine revealed no tenderness, no paraspinal muscle spasm, but decreased range of motion. NEUROLOGICAL EXAMINATION: MENTAL STATUS EXAMINATION: She was alert and awake. She was oriented to self and October 2016. She did not know where she was located or what the date was. She was able to recall 3/3 words immediately, but could only remember 1/3 words in 1 minute and 3 minutes even on the second trial. She was unable to tell me who the present President was and who prior Presidents were. Her mathematical skills were impaired. Her visuospatial function was also impaired. SPEECH: She had no dysarthria. LANGUAGE: She had an anomia for low-frequency words. CRANIAL NERVE EXAMINATION: II: The visual garcia were intact to confrontation testing. III, IV & : The external ocular movements were full and the pupils 3 mm in diameter, equal, round, regular and reactive to light. V: She had normal facial sensations and the temporales, masseters, and pterygoids functioned normally. VII: She had normal facial expressions and no facial asymmetry. VIII: She was able to hear well bilaterally and had no nystagmus. IX: The palate moved symmetrically on phonation. X: She had no hoarseness of voice. XI: The sternocleidomastoids and trapezii functioned normally. XII: The tongue was midline without any fasciculations or atrophy. MOTOR SYSTEM: The tone was normal in all four extremities. Examination of muscle mass revealed wasting of the muscles generally.Examination of power revealed grade 5/5 power except for grade 4/5 power in the iliopsoas muscles bilaterally. SENSORY EXAMINATION: She had intact sensations to pinprick, light touch, and graphesthesia. COORDINATION: She performed well on akzaep-vl-[id number] and [id number]-[id number] testing. REFLEXES: 1+ and bilaterally symmetrical at the biceps, triceps, and brachioradialis. 0 at both knees, and ankles. The plantar responses were flexor bilaterally. STANCE : She needed support on both sides to standup. GAIT: She walked with mildly paraplegic gait to support. Impression/Recommendations Diagnostic Impression 1. Ms. Keshia Castro is an 81-year-old, right-handed, lady, who does have a past history of anxiety and depression, chronic benzodiazepine and opiate use and arthritis involving multiple joints for which she has had bilateral knee replacements, lumbosacral spine disease with compression fractures that had been treated with kyphoplasty, who was hospitalized for frequent falls and cognitive decline. 2. She feels better today and is being sent to a SNF. 3. On neurological examination, at this time, she does demonstrate significant problems with orientation, recent and remote memory, visuospatial function, higher cognitive function and language. 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 4. The MRI of the Brain revealed atrophy and deep white matter changes. 5. The MRI of the LS spine revealed significant spinal stenosis at multiple levels, most marked a the L5-S1 levels. 6. The patient's history and neurological examination are most compatible with significant cognitive decline. This cognitive decline may be related to a primary degenerative process versus other intracranial pathology and in addition , the benzodiazepines and opiates could be contributing to it. 7. The weakness in the legs is related to lumbosacral spinal pathology most marked at the L5-S1 level. There may also be a component of disuse and deconditioning. Recommendations 1. Continue present management. 2. She should be mobilized with the help of physical and occupational therapy. 3. Consider course of Medrol 4 mg tid x 7 days. 4. In the future consider memory stabilizing drugs. Hector Rodriguez M.D., M.S.P.HECTOR CARMONA Oct 08, 2016 17:03
[2016-10-08] MEDS ORDERED: cefTRIAXone 1 GM in D5W 55 ML IVPB SCH (20:00)
== END 2016-10-08 16:56 | disposition short-term general hospital (02) | DRG 312 ==
LOC: EDBD 12:27 → EDUNIT# 12:27 → EMR 13:02 → 2E 14:11 → EDBEDREQ 14:15 → 3E 10-08 01:14
DX: R55 Syncope and collapse (principal); G92 Toxic encephalopathy; N39.0 Urinary tract infection, site not specified; E53.8 Deficiency of other specified B group vitamins; Z91.81 History of falling; F41.8 Other specified anxiety disorders; B96.20 Unspecified Escherichia coli [E. coli] as the cause of diseases classified elsewhere; F32.9 Major depressive disorder, single episode, unspecified; E55.9 Vitamin D deficiency, unspecified; F09 Unspecified mental disorder due to known physiological condition; F11.90 Opioid use, unspecified, uncomplicated; F13.90 Sedative, hypnotic, or anxiolytic use, unspecified, uncomplicated
CPT/HCPCS: 36415; 70450; 70551; 71010; 72040; 72131; 72148; 72192; 80048; 80053; 80300; 81003; 82550; 82553; 82607; 82746; 83036; 83690; 83880; 84165; 84443; 84484; 85025; 85610; 85730; 86592; 87081; 87086; 87181; 93005; 93306